=== PATIENT | female | born 2005 | race Hispanic/Latino ===

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

== ENCOUNTER 2024-06-26 22:07 | Emergency (ER) | payer BC, OTHER ==
[~2024-06-26] VITALS: Ht 172.7 cm; Wt 52.6 kg
[~2024-06-26 22:07] MED LIST changes: -BUPIVACAINE 0.25% 30ML SDV INJ ONE; -DEXAMETHASONE SOD PHOS INJ 4 MG/ML VIAL ONE; -FENTANYL CITRATE/PF 100MCG/2 ML INJ ONE; -GLYCOPYRROLATE INJ 1MG/ 5 ML SYR ONE; -LIDOCAINE HCL 2% LOCAL INJ 5 ML SDV VIAL INJ ONE; -MEPERIDINE HCL INJ 25 MG/ML VIAL ONE; -MIDAZOLAM 2MG/1ML ORAL LIQUID ONE; -NEOSTIGMINE 5 MG/5ML SYR ONE; -PROPOFOL IV EMULSION 10 MG/ML 20 ML VIAL ONE; -SEVOFLURANE INHAL SOLN 250 ML PEN BTL ONE
[2024-06-26 22:30] VITALS: PULSE 90; RESP 21; TEMP 97.6
[2024-06-26] MEDS ORDERED: EPINEPHRIN0.3 MG/0.3 IM (22:54)
[2024-06-26] MEDS ORDERED: PREDNISONE50 MG PO (22:54)
[2024-06-26] MEDS: PREDNISONE 20 MG TAB PO ONE (23:02)
[2024-06-26] MEDS: FAMOTIDINE 20 MG TAB PO ONE (23:02)
[2024-06-26 23:03] VITALS: BP 111/71; PULSE 90; RESP 21; O2SAT 97
== END 2024-06-26 23:05 | disposition home or self-care (01) ==
LOC: FSED 22:14
DX: T78.1XXA Other adverse food reactions, not elsewhere classified, initial encounter (principal)
CPT/HCPCS: 99283; J7512